=== PATIENT | female | born 1990 | race Caucasian/White ===

== ENCOUNTER 2017-03-28 20:26 | Emergency (ER) | payer MEDICAID ==
[2017-03-28 20:26] VITALS: BMI 27.8
[2017-03-28 20:40] VITALS: TEMP 98.4
--- NOTE | 2017-03-28 20:57 | C.PDOC ---
History Of Present Illness A 26 year old female presents to the ED c/o syncopal episode that occurred prior to arrival. Patient notes that she was doing the dishes and had a syncopal episode while vaguely remembers passing out. Patient [id number] notes that she heard a loud noise and saw her on the floor and helped her. Patient denies nausea, vomiting, trauma, fever, chills, headache, change in speech, or any other complaints. Time Seen by Provider: 03/28/17 20:57 Chief Complaint (Nursing): Syncope History Per: Patient, Family ([id number]) History/Exam Limitations: no limitations Onset/Duration Of Symptoms: Hrs Current Symptoms Are (Timing): Still Present Activity At Onset Of Symptoms: Standing (Washing dishes) Fall Associated With With Symptoms: Yes, No Injury As Result Of Fall Severity: Mild Recent travel outside of the [place]: No Additional History Per: Patient Past Medical History Reviewed: Historical Data, Nursing Documentation, Vital Signs Vital Signs: Last Vital Signs Temp 98.4 F 03/28/17 20:38 Pulse 108 H 03/28/17 20:38 Resp 20 03/28/17 20:38 BP 131/84 03/28/17 20:38 Pulse Ox 100 03/28/17 23:08 - Medical History PMH: HTN Family History: States: No Known Family Hx - Social History Hx Tobacco Use: No Hx Alcohol Use: Yes Hx Substance Use: No - Immunization History Hx Tetanus Toxoid Vaccination: No Hx Influenza Vaccination: No Hx Pneumococcal Vaccination: No Review Of Systems Except As Marked, All Systems Reviewed And Found Negative. Constitutional: Negative for: Fever, Chills Gastrointestinal: Negative for: Nausea, Vomiting Neurological: Positive for: Other (Syncopal episode). Negative for: Change in Speech, Headache Physical Exam - Physical Exam Appears: Non-toxic, No Acute Distress Skin: Warm, Dry Head: Atraumatic, Normacephalic Eye(s): bilateral: PERRL, EOMI Cardiovascular: No Murmur Respiratory: No Rales, No Rhonchi, No Wheezing Neurological/Psych: Oriented x3, Normal Speech, Normal Cognition, No Other (No focal deficit) ED Course And Treatment - Laboratory Results Result Diagrams: 03/28/17 21:32 03/28/17 21:32 O2 Sat by Pulse Oximetry: 100 (Room air) Pulse Ox Interpretation: Normal Reevaluation Time: 23:10 Reassessment Condition: Improved Medical Decision Making Medical Decision Making: Upon provider reevaluation patient is feeling better, is medically stable, and requires no further treatment in the ED at this time. Patient will be discharged home. Counseling was provided and all questions were answered regarding diagnosis and need for follow up with dr Bartlett. There is agreement to discharge plan. Return if symptoms persist or worsen. Disposition Counseled Patient/Family Regarding: Studies Performed, Diagnosis, Need For Followup - Disposition Referrals: Cale Bartlett MD [Staff Provider] - Disposition: HOME/ ROUTINE Disposition Time: 20:57 Condition: FAIR Additional Instructions: Please return if symptoms recur Instructions: Syncope (DC) - Clinical Impression Clinical Impression: Vaso vagal episode - Scribe Statement The provider has reviewed the documentation as recorded by the Scribe Aquilino cash All medical record entries made by the Scribe were at my direction and personally dictated by me. I have reviewed the chart and agree that the record accurately reflects my personal performance of the history, physical exam, medical decision making, and the department course for this patient. I have also personally directed, reviewed, and agree with the discharge instructions and disposition.
[2017-03-28] MEDS ORDERED: Sodium Chloride 0.9% 1,000 ML IV ONE (21:00)
--- NOTE | 2017-03-28 21:22 | CT ---
EXAM: CT Head Without Intravenous Contrast CLINICAL HISTORY: 26 years old, female; Signs and symptoms; Syncope and collapse; Additional info: R/O bleed, syncope TECHNIQUE: Axial computed tomography images of the head/brain without intravenous contrast. This CT exam was performed using one or more of the following dose reduction techniques: automated exposure control, adjustment of the mA and/or kV according to patient size, and/or use of iterative reconstruction technique. COMPARISON: No relevant prior studies available. FINDINGS: Brain: No intracranial hemorrhage. No mass. No definite edema. Ventricles: No hydrocephalus. Bones/joints: No acute fracture. Soft tissues: Unremarkable. Sinuses: No acute sinusitis. Mastoid air cells: No mastoid effusion. Orbits: Unremarkable as visualized. IMPRESSION: 1. No acute intracranial abnormality. 2. Incidental/non-acute findings are described above.
[2017-03-28 21:41] LABS: BASO # 0.1 K/uL (0.0-0.2); BASO % 0.4 % (0.0-2.0); EOS # 0.1 K/uL (0.0-0.7); EOS % 0.4 % (0.0-4.0); HEMATOCRIT 42.5 % (34.0-47.0); LYMPH # 2.1 K/uL (1.0-4.3); LYMPH % 11.5 % (20.0-40.0); MEAN CELL VOLUME 76.1 fL (81.0-99.0); MEAN CORPUSCULAR HEMOGLOBIN 26.6 pg (27.0-31.0); MEAN PLATELET VOLUME 9.9 fL (7.2-11.7); MONO # 1.1 K/uL (0.0-0.8); MONO % 5.8 % (0.0-10.0); RED CELL DISTRIBUTION WIDTH 15.9 % (11.5-14.5); WHITE BLOOD COUNT 18.1 K/uL (4.8-10.8)
[2017-03-28 21:47] LABS: CHLORIDE 94 mmol/L (98-107); SODIUM 139 mmol/L (132-148)
[2017-03-28 21:48] LABS: POTASSIUM 3.2 mmol/L (3.6-5.2)
[2017-03-28 21:49] LABS: GFR AFRICAN-AMERICAN > 60
[2017-03-28 21:50] LABS: ALB/GLOB RATIO 1.3 (1.0-2.1); ALKALINE PHOSPHATASE 62 U/L (38-126); ALT/SGPT 22 U/L (9-52); AST/SGOT 16 U/L (14-36); BILIRUBIN,TOTAL 0.7 mg/dL (0.2-1.3); BLOOD UREA NITROGEN 11 mg/dL (7-17); CARBON DIOXIDE 31 mmol/L (22-30); GLUCOSE,RANDOM 98 mg/dL (65-105); INR 1.1; TOTAL PROTEIN 7.8 g/dL (6.3-8.3)
[2017-03-28 21:51] LABS: CALCIUM 8.8 mg/dl (8.6-10.4)
[2017-03-28 22:04] LABS: RBC URINE < 1 /hpf (0-3); URINE BACTERIA RARE (<OCC); URINE BILIRUBIN NEGATIVE (NEGATIVE); URINE BLOOD NEGATIVE (NEGATIVE); URINE COLOR Yellow (YELLOW); URINE GLUCOSE (UA) NORMAL (Normal); URINE KETONE NEGATIVE (NEGATIVE); URINE LEUKOCYTE ESTERASE NEG Leu/uL (Negative); URINE PROTEIN NEGATIVE (NEGATIVE); WBC URINE 1 /hpf (0-5)
[2017-03-28] MEDS ORDERED: Potassium Chloride 10 mEq ER Tab PO STA (23:13)
[2017-03-28] MEDS ORDERED: Potassium Chloride 20 mEq ER Tab PO ONE (23:21)
[2017-03-28 23:24] VITALS: BP 129/75; PULSE 78; RESP 16; O2SAT 98
== END 2017-03-28 23:24 | disposition home or self-care (01) ==
LOC: C.ER 20:26
DX: R55 Syncope and collapse (principal)
CPT/HCPCS: 70450; 80053; 80324; 80345; 80346; 80349; 80353; 80358; 80361; 81001; 83992; 84703; 85025; 85610; 85730; 96360; 99285; J7040

== ENCOUNTER 2018-11-17 08:54 | Emergency (ER) | payer MEDICAID ==
[2018-11-17 08:54] VITALS: BMI 27.8
[2018-11-17 09:06] VITALS: BP 162/115; PULSE 91; RESP 18; TEMP 97.6; O2SAT 97
[2018-11-17] MEDS ORDERED: Albuterol-Ipratrop 3 mg / 0.5 (3 ml) UD ONE (09:42)
[2018-11-17] MEDS: Albuterol-Ipratrop 3 mg / 0.5 (3 ml) UD IH SCH ×2 (09:42→09:59)
--- NOTE | 2018-11-17 11:27 | C.PDOC ---
Time Seen by Provider: 11/17/18 09:14 Chief Complaint (Nursing): Cough, Cold, Congestion Past Medical History Vital Signs: Last Vital Signs Temp 97.6 F 11/17/18 09:02 Pulse 91 H 11/17/18 09:02 Resp 18 11/17/18 09:02 BP 162/115 H 11/17/18 09:02 Pulse Ox 97 11/17/18 09:02 - Medical History PMH: Asthma, Depression, HTN Family History: States: Unknown Family Hx - Social History Hx Tobacco Use: No Hx Alcohol Use: Yes Hx Substance Use: No - Immunization History Hx Tetanus Toxoid Vaccination: No Hx Influenza Vaccination: No Hx Pneumococcal Vaccination: No ED Course And Treatment O2 Sat by Pulse Oximetry: 97 Disposition Counseled Patient/Family Regarding: Diagnosis, Need For Followup, Rx Given - Disposition Referrals: Cale Bartlett MD [Staff Provider] - Disposition: HOME/ ROUTINE Disposition Time: 11:24 Condition: STABLE Prescriptions: Benzonatate [Tessalon Perles] 100 mg PO TID PRN #30 sgl PRN Reason: Cough Ibuprofen [Motrin] 600 mg PO TID #15 tab Prednisone [Deltasone] 60 mg PO DAILY #12 tablet Forms: [employer] (Chinese) - POA Present On Arrival: None - Clinical Impression Clinical Impression: Influenza-like illness, Bronchospasm
--- NOTE | 2018-11-17 11:33 | C.PDOC ---
History Of Present Illness 28 year old female presents to the emergency department with complaints of pain around her ribcage due to coughing for the last two weeks. Patient states that two weeks ago she had viral symptoms of runny nose and cough, but now the coughing is residual. Patient states that she has a history of asthma but is not using her medications at this time. She denies fever, chills, runny nose, headaches, and reports only coughing and pain to her ribcage. Patient also has a second complaint of hot, itchy bumps on her skin, and reports currently having one lesion over her chest on the right side that hasn't gone away. Time Seen by Provider: 11/17/18 09:14 Chief Complaint (Nursing): Cough, Cold, Congestion History Per: Patient History/Exam Limitations: no limitations Onset/Duration Of Symptoms: Other (two weeks) Current Symptoms Are (Timing): Still Present Past Medical History Reviewed: Historical Data, Nursing Documentation, Vital Signs Vital Signs: Last Vital Signs Temp 97.6 F 11/17/18 09:02 Pulse 91 H 11/17/18 09:02 Resp 18 11/17/18 09:02 BP 162/115 H 11/17/18 09:02 Pulse Ox 97 11/17/18 11:27 - Medical History PMH: Asthma, Depression, HTN Surgical History: No Surg Hx Family History: States: No Known Family Hx - Social History Hx Tobacco Use: No Hx Alcohol Use: Yes Hx Substance Use: No - Immunization History Hx Tetanus Toxoid Vaccination: No Hx Influenza Vaccination: No Hx Pneumococcal Vaccination: No Review Of Systems Except As Marked, All Systems Reviewed And Found Negative. Constitutional: Negative for: Fever, Chills ENT: Negative for: Nose Discharge Cardiovascular: Positive for: Chest Pain (ribcage) Respiratory: Positive for: Cough Skin: Positive for: Other (lesion) Neurological: Negative for: Headache Physical Exam - Physical Exam Appears: Well, Non-toxic, No Acute Distress Skin: Warm, Dry, Other (urticaria around right chest) Head: Atraumatic, Normacephalic Eye(s): bilateral: Normal Inspection, PERRL, EOMI Ear(s): Bilateral: Normal Nose: Normal Oral Mucosa: Moist Neck: Normal, Supple Chest: Symmetrical, Tenderness (to the ribcage, right greater than left) Cardiovascular: Rhythm Regular, No Murmur Extremity: Normal ROM Neurological/Psych: Oriented x3, Normal Speech, Normal Cognition ED Course And Treatment O2 Sat by Pulse Oximetry: 97 (RA) Pulse Ox Interpretation: Normal Medical Decision Making Medical Decision Making: Plan: Duoneb 3ml IH Motrin 600mg PO Tessalon Perles 200mg PO Tylenol 975mg PO Prednisone 60mg PO Nebulizer Treatment Disposition - Disposition Referrals: Cale Bartlett MD [Staff Provider] - Disposition: HOME/ ROUTINE Disposition Time: 11:25 Condition: STABLE Prescriptions: Benzonatate [Tessalon Perles] 100 mg PO TID PRN #30 sgl PRN Reason: Cough Ibuprofen [Motrin] 600 mg PO TID #15 tab RX: Prednisone [Deltasone] 60 mg PO DAILY #12 tablet Instructions: Acute Bronchitis, Adult (DC) Forms: General Discharge Instructions, [facility] (Djiboutian), Work Excuse - Clinical Impression Clinical Impression: Influenza-like illness, Bronchospasm - Scribe Statement The provider has reviewed the documentation as recorded by the Scribe (Sukhwinder Avendaño) Provider Attestation: All medical record entries made by the Scribe were at my direction and personally dictated by me. I have reviewed the chart and agree that the record accurately reflects my personal performance of the history, physical exam, medical decision making, and the department course for this patient. I have also personally directed, reviewed, and agree with the discharge instructions and disposition.
== END 2018-11-17 11:34 | disposition home or self-care (01) ==
LOC: C.ER 08:54
DX: J11.1 Influenza due to unidentified influenza virus with other respiratory manifestations (principal); J98.01 Acute bronchospasm; I10 Essential (primary) hypertension

== ENCOUNTER 2018-11-24 08:01 | Emergency (ER) | payer MEDICAID ==
[2018-11-24 08:01] VITALS: BMI 27.8
[2018-11-24 08:10] VITALS: TEMP 98.4
[2018-11-24] MEDS ORDERED: Lidocaine 5% Patch TD ONE ×2 (09:06→09:29)
[2018-11-24] MEDS ORDERED: Albuterol-Ipratrop 3 mg / 0.5 (3 ml) UD IH STA (09:06)
[2018-11-24] MEDS ORDERED: MethylPREDNISolone 40 mg Vial IVP STA (09:08)
--- NOTE | 2018-11-24 09:08 | C.PDOC ---
History Of Present Illness 28 years old female presents to ED for complaints of persistent right chest wall pain that began 2 weeks ago. Patient was seen 11/17 for same complaints. She states no improvement with prescriptions. Patient describes symptoms as lo calized, worse with coughing and movement s/p URI. Patient states she has Hx of asthma and is using MDI more than usual. Denies fever, trauma, Sx associated with eating, or any other complaints. PERSIST R CHEST WALL PAIN X 2 WEEKS. SEEN 11/17 FOR SAME, NO IMPROVE W RX. LOCALIZED, WORSE W COUGHING AND MOVEMENT S/P URI. HO ASTHMA, USING MDI MORE THAN USUAL. NO FEVER, TRAUMA. DENIES ASSOC W EATING. EXAM MILD DIST HEENT NEG LUNGS CTA B/L OCC RHONCHI, EXP WHEEZE. +DRY COUGH W REPRODUC PAIN CHEST WALL ATRAUM NO CREPITUS NO FOCAL TEND SKIN NEG REMAINDER NEG <Johnna Shelton - Last Filed: 11/24/18 11:52> History Per: Patient History/Exam Limitations: no limitations Onset/Duration Of Symptoms: Hrs, Persistent Current Symptoms Are (Timing): Still Present Modifying Factors: None Exacerbating Factors: Movement Alleviating Factors: None Recent travel outside of the [place]: No <Johnna Shelton - Last Filed: 11/24/18 11:52> <Addi Viera - Last Filed: 11/24/18 13:26> Time Seen by Provider: 11/24/18 08:19 Chief Complaint (Nursing): Abdominal Pain Past Medical History Reviewed: Historical Data, Nursing Documentation, Vital Signs Vital Signs: Last Vital Signs Temp 98.4 F 11/24/18 08:05 Pulse 103 H 11/24/18 08:05 Resp 20 11/24/18 08:05 BP 173/141 H 11/24/18 08:05 Pulse Ox 96 11/24/18 08:05 - Medical History PMH: Asthma, Depression, HTN Family History: States: Unknown Family Hx - Social History Hx Tobacco Use: No Hx Alcohol Use: Yes Hx Substance Use: No - Immunization History Hx Tetanus Toxoid Vaccination: No Hx Influenza Vaccination: No Hx Pneumococcal Vaccination: No <Johnna Shelton - Last Filed: 11/24/18 11:52> Vital Signs: Last Vital Signs Temp 98.4 F 11/24/18 08:05 Pulse 110 H 11/24/18 12:47 Resp 18 12/27/18 12:47 BP 167/103 H 11/24/18 12:47 Pulse Ox 99 11/24/18 12:47 <Addi Viera - Last Filed: 11/24/18 13:26> Review Of Systems Constitutional: Negative for: Fever, Chills Cardiovascular: Positive for: Chest Pain (Right chest wall ) Gastrointestinal: Negative for: Nausea, Vomiting, Diarrhea Skin: Negative for: Rash Neurological: Negative for: Weakness, Numbness <Johnna Shelton - Last Filed: 11/24/18 11:52> Physical Exam - Physical Exam Appears: Non-toxic, In Acute Distress (mild ) Skin: Normal Color, Warm, Dry, No Rash Head: Atraumatic, Normacephalic Eye(s): bilateral: Normal Inspection, PERRL, EOMI Oral Mucosa: Moist Neck: Normal ROM, Supple Chest: Symmetrical, No Tenderness, Other (ATRAUMATIC, NO CREPITUS, NO FOCAL TENDERNESS.) Respiratory: Normal Breath Sounds (Clear to auscultation bilaterally ), Rhonchi (Occasional ), Wheezing (Expiratory wheezing ), Other (Positive dry cough with reproducible pain ) Gastrointestinal/Abdominal: Bowel Sounds (Active ), Soft, No Tenderness Extremity: Normal ROM Extremity: Bilateral: Atraumatic, Normal Color And Temperature, Normal ROM Pulses: Left Radial: Normal, Right Radial: Normal Neurological/Psych: Oriented x3, Normal Speech Gait: Steady <Johnna Shelton Last Filed: 11/24/18 11:52> ED Course And Treatment - Laboratory Results Result Diagrams: 11/24/18 10:12 11/24/18 10:12 Urine POC: Negative ECG: Interpreted By Me ECG Rhythm: Sinus Rhythm ECG Interpretation: Normal Rate From EC O2 Sat by Pulse Oximetry: 96 (RA) Pulse Ox Interpretation: Normal (ra) - Radiology CXR: Interpreted by Me CXR Interpretation: Yes: No Acute Disease - Other Rad CXR X-Ray: Viewed By Me, Read By Radiologist Interpretation: HISTORY: R chest pain. COMPARISON: No prior. TECHNIQUE: Chest PA and lateral. FINDINGS: LUNGS: No focal consolidation. Please note that chest x-ray has limited sensitivity for the detection of pulmonary masses. PLEURA: No significant pleural effusion identified. No definite pneumothorax . CARDIOVASCULAR: Heart size appears within normal limits. No atherosclerotic calcification present. OSSEOUS STRUCTURES: No acute osseous abnormality identified. VISUALIZED UPPER ABDOMEN: Unremarkable. OTHER FINDINGS: None. IMPRESSION: No focal consolidation. <Johnna Shelton - Last Filed: 11/24/18 11:52> - Laboratory Results Result Diagrams: 11/24/18 10:12 11/24/18 10:12 <MaximilianoKuldeepFontana Isabella - Last Filed: 11/24/18 13:26> Progress - Re-Evaluation Re-evaluation Note: 11/24/18 10:59 CP RESOLVED. PERSIST HTN 11/24/18 11:52 170/101 APPEARS COMFORTABLE. WILL CONT OBS - Data Reviewed Data Reviewed: Lab, Diagnostic imaging, EKG, Old records <Johnna Shelton - Last Filed: 11/24/18 11:52> Medical Decision Making Medical Decision Making: Plan: * Morphine * Albuterol Nebulizer treatment/ Peak flow * Solu-Medrol * Toradol * EKG * Blood work * CXR <Johnna Shelton - Last Filed: 11/24/18 11:52> Medical Decision Making: Received patient in s/o pending repeat bp and if lower okay to discharge home as per Dr. Shelton. Repeat bp 142-96, lungs are clear. Will discharge home as planned and advised patient to follow up with her pmd within 2 days. Patient was told previously she had high blood pressure and has failed to follow up. Advised patient the importance to following up immediately with her pmd. <MaximilianoKuldeepFontana Isabella - Last Filed: 11/24/18 13:26> Disposition - Disposition Disposition Time: 12:00 <Johnna Shelton - Last Filed: 11/24/18 11:52> Counseled Patient/Family Regarding: Studies Performed, Diagnosis, Need For Followup, Rx Given - Disposition Disposition Time: 13:24 <MaximilianoFontana Isabella - Last Filed: 11/24/18 13:26> - Disposition Disposition: HOME/ ROUTINE Condition: STABLE Additional Instructions: follow up with your doctor within 2 days call to make an appointment take medications as prescribed return to ER if symptoms worsens or progress Prescriptions: Albuterol HFA [Ventolin HFA 90 mcg/actuation (8 g)] 2 puff IH [id number] #1 puff amLODIPine [Norvasc] 5 mg PO DAILY #12 tab Naproxen [Naprosyn] 500 mg PO BID PRN #16 tab PRN Reason: Pain, Moderate (4-7) predniSONE [predniSONE Tab] 50 mg PO DAILY #4 tab Instructions: High Blood Pressure in Adults, Pleuritic Chest Pain, Asthma in Adults Forms: [facility] (Salvadorean), General Discharge Instructions, Work Excuse - Clinical Impression Clinical Impression: Pleuritic chest pain, Hypertension, Asthma - Scribe Statement The provider has reviewed the documentation as recorded by the Scribe Betty Gomez All medical record entries made by the Scribe were at my direction and personally dictated by me. I have reviewed the chart and agree that the record accurately reflects my personal performance of the history, physical exam, medical decision making, and the department course for this patient. I have also personally directed, reviewed, and agree with the discharge instructions and disposition. <Johnna Shelton - Last Filed: 11/24/18 11:52> Physician Patient Turnover Patient Signed Over To: Addi Viera Handoff Comments: FU REEVAL, DISPO <Johnna Shelton - Last Filed: 11/24/18 11:52>
[2018-11-24] MEDS ORDERED: MethylPREDNISolone 40 mg Vial ONE (09:29)
[2018-11-24] MEDS ORDERED: Albuterol-Ipratrop 3 mg / 0.5 (3 ml) UD ONE (09:53)
--- NOTE | 2018-11-24 10:13 | RAD ---
HISTORY: R chest pain COMPARISON: No prior. TECHNIQUE: Chest PA and lateral FINDINGS: LUNGS: No focal consolidation. Please note that chest x-ray has limited sensitivity for the detection of pulmonary masses. PLEURA: No significant pleural effusion identified. No definite pneumothorax . CARDIOVASCULAR: Heart size appears within normal limits. No atherosclerotic calcification present. OSSEOUS STRUCTURES: No acute osseous abnormality identified. VISUALIZED UPPER ABDOMEN: Unremarkable. OTHER FINDINGS: None. IMPRESSION: No focal consolidation.
[2018-11-24 10:15] LABS: BASO # 0.1 K/uL (0.0-0.2); BASO % 0.5 % (0.0-2.0); EOS # 0.2 K/uL (0.0-0.7); EOS % 1.3 % (0.0-4.0); HEMOGLOBIN 14.5 g/dL (11.0-16.0); LYMPH # 2.3 K/uL (1.0-4.3); LYMPH % 17.2 % (20.0-40.0); MEAN CELL VOLUME 81.3 fL (81.0-99.0); MEAN CORPUSCULAR HEMOGLOBIN 28.2 pg (27.0-31.0); MEAN CORPUSCULAR HGB CONC 34.8 g/dL (33.0-37.0); MEAN PLATELET VOLUME 9.5 fL (7.2-11.7); MONO # 0.6 K/uL (0.0-0.8); MONO % 4.8 % (0.0-10.0); NEUT # 10.2 K/uL (1.8-7.0); NEUT % 76.2 % (50.0-75.0); NRBC % 0.1 % (0.0-2.0); RBC 5.13 Mil/uL (3.80-5.20); RED CELL DISTRIBUTION WIDTH 13.6 % (11.5-14.5); WHITE BLOOD COUNT 13.4 K/uL (4.8-10.8)
[2018-11-24 10:30] LABS: ALB/GLOB RATIO 1.6 (1.0-2.1); ALBUMIN 4.3 g/dL (3.5-5.0); ALT/SGPT 23 U/L (9-52); AST/SGOT 15 U/L (14-36); BLOOD UREA NITROGEN 12 mg/dL (7-17); CALCIUM 9.1 mg/dl (8.6-10.4); GFR NON-AFRICAN AMERICAN > 60
[2018-11-24 12:20] VITALS: RESP 18
[2018-11-24 13:54] VITALS: PULSE 92; O2SAT 98
[2018-11-24 14:21] VITALS: BP 148/97
--- NOTE | 2018-11-25 19:14 | CARD ---
APPROVED REPORT Date of service: 11/24/2018 EKG Measurement Heart [id number] <Conclusion> Normal sinus rhythm with sinus arrhythmia Possible Left atrial enlargement Borderline ECG
== END 2018-11-24 14:31 | disposition home or self-care (01) ==
LOC: C.ER 08:01
DX: R07.81 Pleurodynia (principal); J45.909 Unspecified asthma, uncomplicated; I10 Essential (primary) hypertension
CPT/HCPCS: 71046; 80053; 85025; 85378; 93005; 94640; 96374; 96375; 99285; J1885; J2270; J2920

== ENCOUNTER 2018-12-26 10:13 | Emergency (ER) | payer MEDICAID ==
[2018-12-26 10:13] VITALS: BMI 27.8
[2018-12-26 10:49] VITALS: BP 195/130; PULSE 97; RESP 20; TEMP 98; O2SAT 99
--- NOTE | 2018-12-26 14:35 | C.PDOC ---
History Of Present Illness 28 y/o female presents to the ER complaining of lower abdominal pain which has been present for the past 2-3 days. Patient describes the pain as cramping. Patient reports that she has associated heavy vaginal bleeding. Denies having fever, chills, nausea, and vomiting. Time Seen by Provider: 12/26/18 13:36 Chief Complaint (Nursing): Abdominal Pain History Per: Patient History/Exam Limitations: no limitations Onset/Duration Of Symptoms: Days Current Symptoms Are (Timing): Still Present Severity: Moderate Past Medical History Reviewed: Historical Data, Nursing Documentation, Vital Signs Vital Signs: Last Vital Signs Temp 98.0 F 12/26/18 10:45 Pulse 97 H 12/26/18 10:45 Resp 20 12/26/18 10:45 BP 195/130 H 12/26/18 10:45 Pulse Ox 99 12/26/18 10:45 - Medical History PMH: Asthma, Depression, HTN Other Surgeries: Hx of surgeries Family History: States: No Known Family Hx - Social History Hx Tobacco Use: No Hx Alcohol Use: Yes Hx Substance Use: No - Immunization History Hx Tetanus Toxoid Vaccination: No Hx Influenza Vaccination: No Hx Pneumococcal Vaccination: No Review Of Systems Except As Marked, All Systems Reviewed And Found Negative. Constitutional: Negative for: Fever, Chills Gastrointestinal: Positive for: Abdominal Pain. Negative for: Nausea, Vomiting, Diarrhea Genitourinary: Positive for: Vaginal Bleeding Physical Exam - Physical Exam Appears: Non-toxic, No Acute Distress Skin: Normal Color, Warm, Dry Head: Atraumatic, Normacephalic Eye(s): bilateral: Normal Inspection Nose: Normal Oral Mucosa: Moist Neck: Supple Chest: Symmetrical Cardiovascular: Rhythm Regular Respiratory: Normal Breath Sounds, No Rales, No Rhonchi, No Wheezing Gastrointestinal/Abdominal: Soft, Tenderness (mild suprapubic tenderness), No Guarding, No Rebound Back: Normal Inspection, No CVA Tenderness Neurological/Psych: Oriented x3, Normal Speech ED Course And Treatment O2 Sat by Pulse Oximetry: 99 (RA) Pulse Ox Interpretation: Normal Medical Decision Making Medical Decision Making: Plan: --Labs --UA --HCG, Qual. Updates: Patient declined to have further evaluation and she was requesting to leave. Patient has signed out against medical advice. The patient declines to have further medical evaluation and treatment and wishes to leave the Emergency Department. This action is against my medical advice to the patient, and with informed refusal. The patient was told that evaluation and treatment are necessary and a full explanation of the rationale was given. The risks of leaving were explained to the patient and include, but are not limited to, worsening of known or currently unknown conditions, permanent disability and from undiagnosed or untreated conditions The patient has the capacity to make this informed decision and understands the clinical situation and my explanation of the risks of leaving. The patient voluntarily accepts these risks, and a signed AMA form documenting our conversation was obtained. The patient was given the opportunity to ask questions and reconsider. The patient was encouraged to return to the Emergency Department at any time for further care. Disposition - Disposition Disposition: AGAINST MEDICAL ADVICE Disposition Time: 14:35 Condition: STABLE Additional Instructions: Follow up with the medical doctor within 1-2 days. return if worsened. Instructions: Acute Abdomen (Belly Pain), Adult (DC) Forms: [facility] (Georgian), Work Excuse - Clinical Impression Clinical Impression: Abdominal wall pain - PA / [employer] / Resident Statement MD/DO has reviewed & agrees with the documentation as recorded. - Scribe Statement The provider has reviewed the documentation as recorded by the Nadine Dixon Provider Attestation All medical record entries made by the Ana Lauraibnury were at my direction and personally dictated by me. I have reviewed the chart and agree that the record accurately reflects my personal performance of the history, physical exam, medical decision making, and the department course for this patient. I have also personally directed, reviewed, and agree with the discharge instructions and disposition.
== END 2018-12-26 14:53 | disposition left against medical advice (07) ==
LOC: C.ER 10:13
DX: R10.30 Lower abdominal pain, unspecified (principal)